=== PATIENT | male | born 1955 | race Caucasian/White ===

== ENCOUNTER 2018-09-17 11:34 | Outpatient (CLI) | payer MEDICAID ==
[~2018-09-17 11:34] MED LIST: Bupivacaine 0.5% 30 ML SDV ONE
[2018-09-17 12:17] VITALS: BP 138/96; PULSE 90
--- NOTE | 2018-09-17 18:19 | ANES ---
DATE OF SERVICE: 09/17/2018 INDICATION: Randell is a 63-year-old male patient, referred to us by Dr. Reynoso for trigger point injections today. He has had them in the past, is well aware of the risks and benefits, and wishes to proceed with trigger point injections. Please refer to the doctor's notes for ICD-10 code and diagnosis. TECHNIQUE: The patient was then sat at the edge of the bed. He was wanting me to focus on his bilateral neck, down his both bilateral trapezius muscles and middle of his back, at the thoracic region. Alcohol was used to clean the skin in those areas. I was able to easily identify approximately 18 to 19 trigger points across all 3 areas. 1 to 2 mL of 0.5% Sensorcaine was injected into those areas. More than 3 muscle groups were injected today. The patient tolerated the procedure without difficulty. Please refer to the nurse's notes for vital signs. After the appropriate amount of time, the patient will be discharged per ACU protocol. Raymond Rogers CRNA /[id number]
== END 2018-09-17 12:19 | disposition home or self-care (01) ==
LOC: JP.PAIN 11:34
PROVIDERS: ATTEND Family Medicine
DX: M79.18 Myalgia, other site (principal); M54.2 Cervicalgia
CPT/HCPCS: 20553; J3490

== ENCOUNTER 2020-10-13 09:21 | Day surgery (SDC) | payer MEDICARE, MEDICAID ==
[~2020-10-13 09:21] MED LIST changes: -Bupivacaine 0.5% 30 ML SDV ONE; +Bupivacaine 0.5%/EPINEPHrine 1:200,000 50 ML MDV ONE; +Meropenem 500 MG SDV ONE
[2020-10-13] MEDS ORDERED: Acetaminophen 500 MG Tab PO ONE (09:50)
[2020-10-13] MEDS ORDERED: Meropenem 500 MG in Sodium Chloride 0.9% 50 ML IV ONE (10:15)
[2020-10-13] MEDS ORDERED: Dextrose 5%-Lactated Ringers 1,000 ML IV SCH (11:00)
[2020-10-13] MEDS ORDERED: Gabapentin 300 MG Cap PO ONE (11:05)
[2020-10-13] MEDS ORDERED: Albuterol/Ipratropium 3.0-0.5 MG/3 ML Neb Soln NEB ONE (11:21)
[2020-10-13] MEDS ORDERED: Neostigmine Methylsulfate 1 MG/ML 5 ML Syringe ONE (11:25)
[2020-10-13] MEDS ORDERED: Rocuronium 50 MG/5 ML Vial ONE (11:25)
[2020-10-13] MEDS ORDERED: Succinylcholine 200 MG/10 ML MDV ONE (11:25)
[2020-10-13] MEDS ORDERED: fentaNYL 250 MCG/5 ML SDV ONE (11:25)
[2020-10-13] MEDS ORDERED: Ondansetron 4 MG/2 ML SDV ONE (11:25)
[2020-10-13] MEDS ORDERED: Propofol 200 MG/20 ML SDV ONE (11:25)
[2020-10-13] MEDS ORDERED: Dexamethasone 4 MG/ML SDV ONE (11:25)
[2020-10-13] MEDS ORDERED: Glycopyrrolate 0.2 MG/ML 5 ML MDV ONE (11:25)
[2020-10-13] MEDS ORDERED: Lactated Ringers 1,000 ML ONE (14:26)
[2020-10-13 15:58] VITALS: BP 123/58; PULSE 66
--- NOTE | 2020-10-19 12:45 | OR ---
DATE OF PROCEDURE: 10/13/2020 SURGEON: Pedrito Whittaker MD PREOPERATIVE DIAGNOSIS: Probable hidradenitis suppurativa involving right perianal and perineal area. POSTOPERATIVE DIAGNOSIS: Hidradenitis suppurativa, right perineal and perianal area, complicated by chronic infection and drainage. PROCEDURE PERFORMED: Excision of a complicated hidradenitis suppurativa involving right perianal and perineal area (63428). ANESTHESIA: General. INDICATIONS FOR PROCEDURE: A 65-year-old male presenting with longstanding intermittent drainage of some purulent material in a broad area lateral to the inguinal and perineal region on the right side. There had been some question in the past whether or not this involved the anal area, i.e., with a complicated perirectal abscess and/or fistula. The plan will be to proceed with excision of the involved mass, and then we will explore to see if there is any connection into the rectum. Potential risks including bleeding, infection, the possible need for fistulotomy with some adverse effects on thecal contents were gone over along with the remote possibility of cardiopulmonary, septic, or hemorrhagic complications leading to , and the patient wishes to proceed. DETAILS OF PROCEDURE: The patient was taken to the operating room and placed in a supine position. After general endotracheal anesthesia was induced, he was converted to a lithotomy position, and the perineal and perianal areas were prepped and draped. An elliptical incision over the right perianal and perineal area was then made over the indurated area. This was carried down through the skin, subcutaneous tissue, and down to a plane where there was clean subcutaneous tissue and musculature in all directions. The entire length of the incision was around 11 cm. By definition, this would include the incision and margin length. After completion of this, cultures were obtained from the tissue and the area explored. There did not appear to be any obvious inflammatory tracts leading toward the rectum, and the wound was then anesthetized with 1% lidocaine mixed with Marcaine and packed with iodoform gauze. The patient tolerated the procedure well. Pedrito Whittaker MD /[id number]
== END 2020-10-13 16:25 | disposition home or self-care (01) ==
LOC: JP.SDS 09:21
PROVIDERS: ATTEND Surgery
DX: L73.2 Hidradenitis suppurativa (principal); L72.0 Epidermal cyst; L08.9 Local infection of the skin and subcutaneous tissue, unspecified; L90.5 Scar conditions and fibrosis of skin; I10 Essential (primary) hypertension; E78.5 Hyperlipidemia, unspecified; K21.9 Gastro-esophageal reflux disease without esophagitis; J44.9 Chronic obstructive pulmonary disease, unspecified; E66.09 Other obesity due to excess calories; G89.29 Other chronic pain; M25.561 Pain in right knee; M25.562 Pain in left knee; M54.42 Lumbago with sciatica, left side; G54.2 Cervical root disorders, not elsewhere classified; L40.50 Arthropathic psoriasis, unspecified; G57.93 Unspecified mononeuropathy of bilateral lower limbs; F17.210 Nicotine dependence, cigarettes, uncomplicated; Z79.899 Other long term (current) drug therapy; Z68.31 Body mass index [BMI] 31.0-31.9, adult
CPT/HCPCS: 11470; 87070; 87075; 87205; 88304; 94640; A9270; J0330; J1100; J2185; J2405; J2704; J2710; J3010; J3490; J7120; J7121; J7620-GY

== ENCOUNTER 2020-10-15 14:00 | Emergency (ER) | payer MEDICARE, MEDICAID ==
[2020-10-15 14:19] VITALS: BP 148/89; PULSE 97
--- NOTE | 2020-10-15 15:11 | EDM.PDOC ---
ED HPI GENERAL MEDICAL PROBLEM - General Chief Complaint: Wound Recheck Stated Complaint: POST-OP BLEED VIA [facility] Time Seen by Provider: 10/15/20 14:40 Source of Information: Reports: Patient, EMS History Limitations: Reports: No Limitations - History of Present Illness INITIAL COMMENTS - FREE TEXT/NARRATIVE: 65-year-old male had a lesion removal from the right groin 5 days ago, and is having a marked difficulty repacking his wounds by himself. The person who helps him was unable to come in today, he noticed some drainage from the wound so called the ambulance. No fevers or chills. Onset: Unknown/Unsure Duration: Day(s): (Wound has been present since surgery 5 days ago) Location: Reports: Lower Extremity, Right Worsens with: Reports: Movement Associated Symptoms: Denies: Fever/Chills, Nausea/Vomiting, Shortness of Breath - Related Data Allergies Allergy/AdvReac Type Severity Reaction Status Date / Time methotrexate Allergy Severe Airway Verified 10/15/20 14:06 Tightness bee venom protein (honey bee) Allergy Swelling Verified 10/15/20 14:06 morphine Allergy Itching Verified 10/15/20 14:06 moxifloxacin [From Avelox] Allergy Hives Verified 10/15/20 14:06 Sulfa (Sulfonamide Allergy Rash Verified 10/15/20 14:06 Antibiotics) citalopram [From Celexa] AdvReac Nausea and Verified 10/15/20 14:06 Vomiting Home Meds: Home Meds Furosemide [Lasix] 40 mg PO BID 05/05/13 [History] Hydrocodone/Acetaminophen [Vicodin 5-300 mg Tablet] 1 - 2 tab PO Q4HR PRN 05/05/13 [History] Lisinopril 20 mg PO BID 05/05/13 [History] oxyCODONE HCl/Acetaminophen [Percocet 10-325 mg Tablet] 1 each PO ASDIRECTED PRN 05/05/13 [History] Calcipotriene 1 dose TOP ASDIRECTED 07/23/14 [History] Cholecalciferol (Vitamin D3) [Vitamin D] 1,000 units PO DAILY 07/23/14 [History] Escitalopram [Lexapro] 10 mg PO DAILY 07/23/14 [History] Esomeprazole [NexIUM] 40 mg PO BID 04/24/15 [History] Ezetimibe [Zetia] 10 mg PO DAILY 07/23/14 [History] Halobetasol Propionate 1 dose TOP ASDIRECTED 07/23/14 [History] Ibuprofen 800 mg PO ASDIRECTED 07/23/14 [History] Nebivolol HCl [Bystolic] 10 mg PO DAILY 07/23/14 [History] amLODIPine Besylate [Amlodipine Besylate] 10 mg PO DAILY 07/23/14 [History] Albuterol [Ventolin HFA] 1 - 2 puff IH Q4H PRN 10/10/20 [History] Albuterol/Ipratropium [DuoNeb 3.0-0.5 MG/3 ML] 3 ml IH Q6H PRN 10/10/20 [History] Amitriptyline [Elavil] 25 - 50 mg PO BEDTIME 10/10/20 [History] Aspirin [Arsen Chewable] 81 mg PO DAILY 10/10/20 [History] EPINEPHrine [Epipen] 0.3 mg IM ASDIRECTED PRN 10/10/20 [History] FLUoxetine HCl [Prozac] 20 mg PO DAILY 10/10/20 [History] Gabapentin [Neurontin] 600 mg PO BID 10/10/20 [History] Metoprolol Succinate [Toprol Xl] 50 mg PO DAILY 10/10/20 [History] Naloxone HCl [Narcan] 4 mg NS ASDIRECTED PRN 10/10/20 [History] Nitroglycerin [Nitrostat] 0.4 mg SL ASDIRECTED PRN 10/10/20 [History] Omeprazole 40 mg PO DAILY 10/10/20 [History] Sildenafil Citrate [Viagra] 100 mg PO ASDIRECTED PRN 10/10/20 [History] allopurinoL [Zyloprim] 100 mg PO DAILY 10/10/20 [History] methocarbamoL [Robaxin] 500 mg PO QID 10/10/20 [History] Past Medical History HEENT History: Reports: Impaired Vision Cardiovascular History: Reports: Arrhythmia, CAD, High Cholesterol, Hypertension, [place], Stents, Other (See Below) Other Cardiovascular History: punctured aorta with back surgery in 1991, according to patient Respiratory History: Reports: Asthma, COPD Gastrointestinal History: Reports: GERD Genitourinary History: Reports: Other (See Below) Other Genitourinary History: retrograge ejaculation Musculoskeletal History: Reports: Arthritis, Back Pain, Chronic, Fracture, Gout, Neck Pain, Chronic Other Musculoskeletal History: left knee Neurological History: Reports: Concussion, Headaches, Chronic Psychiatric History: Reports: Anxiety, Depression Oncologic (Cancer) History: Reports: Basal Cell Carcinoma Dermatologic History: Reports: Psoriasis - Infectious Disease History Infectious Disease History: Reports: Chicken Pox - Past Surgical History HEENT Surgical History: Reports: None Cardiovascular Surgical History: Reports: Carotid Stents, Other (See Below) Other Cardiovascular Surgeries/Procedures: repaired aorta Respiratory Surgical History: Reports: Other (See Below) Other Respiratory Surgeries/Procedures: history of chest tube due to 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 GI Surgical History: Reports: Cholecystectomy, Colonoscopy, EGD Neurological Surgical History: Reports: Discectomy, Scoliosis, Spinal Fusion Musculoskeletal Surgical History: Reports: Knee Replacement Dermatological Surgical History: Reports: Skin Biopsy Social & Family History - Family History Family Medical History: No Pertinent Family History - Tobacco Use Tobacco Use Status *Q: Current Every Day Tobacco User Years of Tobacco use: 50 Packs/Tins Daily: 2 - Caffeine Use Caffeine Use: Reports: Coffee ED ROS GENERAL - Review of Systems Review Of Systems: See Below Constitutional: Denies: Fever, Chills HEENT: Reports: No Symptoms Respiratory: Denies: Shortness of Breath Cardiovascular: Denies: Chest Pain GI/Abdominal: Denies: Nausea, Vomiting : Reports: No Symptoms Musculoskeletal: Reports: Other (Patient has significant diffuse osteoarthritis and joint pains including back and bilateral knee pain) Neurological: Denies: Headache ED EXAM, SKIN/RASH Exam: See Below Exam Limited By: No Limitations General Appearance: Alert, No Apparent Distress Head: Atraumatic Respiratory/Chest: No Respiratory Distress, Lungs Clear Cardiovascular: Regular Rate, Rhythm. No: Tachycardia GI/Abdominal: Soft, Non-Tender Extremities: Other (Exam of the right groin reveals a fairly large, open postsurgical wound which appears clean, no surrounding erythema and no current drainage) Neurological: Alert, Oriented Course - Vital Signs Last Recorded V/S: Last Vital Signs Temp 98.2 F 10/15/20 14:17 Pulse 97 10/15/20 14:17 Resp 14 10/15/20 14:17 BP 148/89 H 10/15/20 14:17 Pulse Ox 92 L 10/15/20 14:17 - Re-Assessments/Exams Free Text/Narrative Re-Assessment/Exam: 10/16/20 07:05 Charge nurse was consulted to talk to the patient and surgery about setting up home health or nursing assistance at home for dressing changes. A dressing change was done today, Dr. Whittaker was okay with his dressing changes to be reduced to once daily and the patient was convinced that his girlfriend could help him tomorrow. Home health will be set up on Saturday. Departure - Departure Time of Disposition: 16:23 Disposition: Home, Self-Care 01 Clinical Impression: Encounter for postoperative wound care - Discharge Information Instructions: Wound Packing Referrals: Pedrito Whittaker MD [Primary Care Provider] - Forms: ED Department Discharge Care Plan Goals: Continue your current medications and decreased wound packing to once daily until Saturday. Recheck as needed, and keep your scheduled appointments. Sepsis Event Note (ED) - Evaluation Sepsis Screening Result: No Definite Risk
== END 2020-10-15 16:24 | disposition home or self-care (01) ==
LOC: JP.ED 14:00
DX: Z48.01 Encounter for change or removal of surgical wound dressing (principal); E78.00 Pure hypercholesterolemia, unspecified; I10 Essential (primary) hypertension; I25.2 Old myocardial infarction; J44.9 Chronic obstructive pulmonary disease, unspecified; Z95.5 Presence of coronary angioplasty implant and graft; K21.9 Gastro-esophageal reflux disease without esophagitis; Z72.0 Tobacco use; Z79.899 Other long term (current) drug therapy; Z79.82 Long term (current) use of aspirin; Z88.6 Allergy status to analgesic agent; Z88.2 Allergy status to sulfonamides; Z88.8 Allergy status to other drugs, medicaments and biological substances; Z91.030 Bee allergy status; Z88.1 Allergy status to other antibiotic agents
CPT/HCPCS: 99283